=== PATIENT | female | born 1995 | race Caucasian/White ===

== ENCOUNTER 2016-07-07 19:57 | Emergency (ER) | payer BC, OTHER ==
[~2016-07-07] VITALS: Ht 157.5 cm; Wt 55.7 kg
[~2016-07-07 19:57] MED LIST: CHLO0.12 MT; CLIN300C2 PO; HYDR-5688 PO
[2016-07-07 19:59] VITALS: TEMP 36.9; Ht 157.5 cm; Wt 55.7 kg
[2016-07-07] MEDS ORDERED: AMOXICILLIN 500 MG CAP PO STA (20:41)
[2016-07-07] MEDS ORDERED: AMX500 PO (20:54)
[2016-07-07] MEDS ORDERED: AMOXICILLIN 250 MG CAP PO ONE (20:55)
[2016-07-07 21:01] VITALS: BP 127/78; PULSE 101; O2SAT 98
--- NOTE | 2016-07-07 22:50 | EMERGENCY ROOM VISIT NOTE ---
History Report prepared by Abadibdonita: Dayton Costa Under the Supervision of: Dr. Hector Mendez D.O. First contact with patient: 20:26 Chief Complaint: EAR PAIN Stated Complaint: SEVER PAIN IN EAR, ACHES IN NECK, SORE THROAT History of Present Illness The patient is a 21 year old female who presents to the Emergency Room with complaints of persistent right ear pain for the past two days. The patient also notes some pain radiating to her right jaw. The pain is rated 8/10 in severity. The patient denies any specific fevers as she has not measured her temperature. Source of History: patient Onset: two days Position: ear (right) Symptom Intensity: 8/10 Timing: other (persistent) Associated Symptoms: No fevers Review of Systems See HPI for pertinent positives & negatives. A total of 10 systems reviewed and were otherwise negative. Past Medical & Surgical Medical Problems: (1) Dehydration (2) Dental infection Family History No pertinent family history Social History Smoking Status: Never Smoker Occupation Status: [employer] student Current/Historical Medications Scheduled Amoxicillin (Amoxicillin), 500 MG PO BID Allergies Coded Allergies: No Known Allergies (Unverified , 07/07/16) Physical Exam Vital Signs Date Time Temp Pulse Resp B/P Pulse Ox O2 Delivery O2 Flow Rate FiO2 07/07/16 21:01 101 18 127/78 98 Room Air 07/07/16 19:59 36.9 102 18 116/84 97 Room Air Physical Exam CONSTITUTIONAL/VITAL SIGNS: Reviewed / noted above. GENERAL: Non-toxic in appearance. INTEGUMENTARY: Warm, dry, and [place]. HEAD: Normocephalic. No facial swelling or tenderness. EYES: without scleral icterus or trauma. ENT/OROPHARYNX: Mild posterior oropharyngeal erythema. LYMPHADENOPATHY/NECK: Is supple without lymphadenopathy or meningismus. RESPIRATORY: Lungs clear and equal. CARDIOVASCULAR: Regular rate and rhythm. GI/ABDOMEN: Soft and nontender. No organomegaly or pulsatile mass. No rebound or guarding. Normal bowel sounds. EXTREMITIES: Warm and well perfused. BACK: No CVA tenderness. NEUROLOGICAL: Intact without focal deficits. PSYCHIATRIC: normal affect. MUSCULOSKELETAL: Normally developed with good muscle tone. Medical Decision & Procedures Medications Administered Medications (Trade) Dose Ordered Sig/Iraj Route Start Time Stop Time Status Last Admin Dose Admin Amoxicillin (Amoxil Cap) 500 mg STK-MED ONCE PO 07/07/16 20:55 07/07/16 20:58 DC 07/07/16 21:03 500 MG ED Course 2024: The patient was evaluated by my resident. 2039: Previous medical records were reviewed. The patient was evaluated in room D6. A complete history and physical examination was performed. 2040: Amoxicillin 500 mg PO. 2044: Discussed the treatment plan with the patient. She verbalized understanding. The patient is ready for discharge. Medical Decision Differential diagnosis: Etiologies such as viral syndrome, otitis, pharyngitis, pneumonia, influenza, meningitis, urinary tract infection, sepsis, bacteremia, as well as others were entertained. The patient was seen with the resident. The patient appears to have symptoms that are consistent with a upper respiratory infection ear infection. The patient was discharged on amoxicillin. She is felt to be stable for outpatient follow-up. Impression Primary Impression: Otitis media Additional Impression: Pharyngitis Scribe Attestation The scribe's documentation has been prepared under my direction and personally reviewed by me in its entirety. I confirm that the note above accurately reflects all work, treatment, procedures, and medical decision making performed by me. Departure Information Dispostion Home / Self-Care Prescriptions Amoxicillin (Amoxicillin) 500 Mg Cap 500 MG PO BID for 7 Days, #14 Prov: Marla Mishra MD 07/07/16 Referrals No Doctor, Assigned (PCP) Forms HOME CARE DOCUMENTATION FORM, IMPORTANT VISIT INFORMATION, WORK / SCHOOL INSTRUCTIONS Patient Instructions Ear Infection - [facility], [facility] Additional Instructions Get a thermometer and check your temperature. Follow up with your PCP within a week. Use Debrox ear drops to loosen the wax in your ears, this will help your hearing as well. You can come back to clinic to have the wax removed too. If you notice worsening fevers, chills, chest pain, swelling in the side of your face, please return to the ED. Problem Qualifiers
== END 2016-07-07 20:15 | disposition home or self-care (01) ==
LOC: C.EDB 19:59 → C.EDD 20:15
DX: H66.91 Otitis media, unspecified, right ear (principal); J02.9 Acute pharyngitis, unspecified